=== PATIENT | female | born 1990 | race Two or more races ===

== ENCOUNTER → 2022-06-28 | Outpatient (CLI) | payer OTHER ==
[2022-06-28 12:14] LABS: Basophils # (auto) 0 10 ^3/uL (0-0.2); Basophils % (auto) 0.3 % (0.0-2.0); Eosinophils # (auto) 0.2 10 ^3/uL (0-0.8); Eosinophils % (auto) 1.4 % (0.0-7.0); Hematocrit 40.9 % (36.0-46.0); Hemoglobin 12.9 g/dL (12.2-16.2); Lymphocytes # (auto) 3.5 10 ^3/uL (0.4-5.4); Lymphocytes % (auto) 29.6 % (10.0-50.0); Mean Corpuscular Hemoglobin 28.4 pg (28.0-32.0); Mean Corpuscular Hgb Conc. 31.6 g/dL (32.0-36.0); Mean Corpuscular Volume 89.9 fL (80.0-100.0); Monocytes # (auto) 0.8 10 ^3/uL (0-1.3); Monocytes % (auto) 6.6 % (0.0-12.0); Neutrophils # (auto) 7.4 10 ^3/uL (1.6-8.6); Neutrophils % (auto) 62.1 % (37.0-80.0); Red Blood Cells 4.55 10^6/uL (4.0-5.20); Red Cell Distribution Width 12.7 % (11.8-14.3); White Blood Cell 11.9 10^3/uL (4.4-10.8)
[2022-06-28 12:23] LABS: Alcohol, Urine < 3.0 mg/dL (0-10); Amphetamine Screen, Urine NEGATIVE (NEGATIVE); Barbiturate Scree,Urine NEGATIVE (NEGATIVE); Benzodiazephine Screen, Urine NEGATIVE (NEGATIVE); Cannabinoid Screen, Urine POSITIVE (NEGATIVE); Cocaine Screen, Urine NEGATIVE (NEGATIVE); Opiate Scree,Urine NEGATIVE (NEGATIVE); Phencyclidine Screen, Urine NEGATIVE (NEGATIVE)
[2022-06-29 06:06] LABS: RPR Non Reactive (Non Reactive)
== END | disposition home or self-care (01) ==
LOC: LAB 10:55
PROVIDERS: ATTEND Obstetrics & Gynecology
DX: Z34.80 Encounter for supervision of other normal pregnancy, unspecified trimester (principal); Z31.430 Encounter of female for testing for genetic disease carrier status for procreative management; Z36.0 Encounter for antenatal screening for chromosomal anomalies; N39.0 Urinary tract infection, site not specified
CPT/HCPCS: 36415; 80307; 83036; 84112; 84144; 84702; 85025; 86592; 86703; 86762; 86765; 86850; 86900; 86901; 87086; 87340

== ENCOUNTER 2022-10-28 15:55 | Observation (INO) | payer OTHER ==
[~2022-10-28] VITALS: Ht 165.1 cm; Wt 80.3 kg
== END 2022-10-28 21:20 | disposition home or self-care (01) ==
LOC: LDRP 15:55 → UNDOADMOB 15:55 → LDRP 16:08
PROVIDERS: ADMIT Obstetrics & Gynecology; ATTEND Obstetrics & Gynecology
DX: O46.93 Antepartum hemorrhage, unspecified, third trimester (principal); O26.893 Other specified pregnancy related conditions, third trimester; N89.8 Other specified noninflammatory disorders of vagina; O24.419 Gestational diabetes mellitus in pregnancy, unspecified control; Z3A.29 29 weeks gestation of pregnancy; Z79.899 Other long term (current) drug therapy
CPT/HCPCS: 59025; 81002; 82962; 94760; G0378; 76815

== ENCOUNTER 2022-11-16 08:25 | Observation (INO) | payer OTHER ==
[2022-11-16] MEDS ORDERED: PREN1TAB71 OR (09:58)
== END 2022-11-16 10:27 | disposition home or self-care (01) ==
LOC: UNDOADMOB 09:10 → LDRP 09:10 → UNDODISOB 10:27
PROVIDERS: ADMIT Obstetrics & Gynecology; ATTEND Obstetrics & Gynecology
DX: O24.419 Gestational diabetes mellitus in pregnancy, unspecified control (principal); O26.893 Other specified pregnancy related conditions, third trimester; R10.9 Unspecified abdominal pain; Z3A.32 32 weeks gestation of pregnancy
CPT/HCPCS: 59025; 76818; 81002; 82948; 82962; G0378

== ENCOUNTER 2022-11-23 08:43 | Observation (INO) | payer OTHER ==
[~2022-11-23 08:43] MED LIST: PREN1TAB71 OR
== END 2022-11-23 11:46 | disposition home or self-care (01) ==
LOC: UNDOADMOB 10:07 → LDRP 10:07
PROVIDERS: ADMIT Obstetrics & Gynecology; ATTEND Obstetrics & Gynecology
DX: O24.419 Gestational diabetes mellitus in pregnancy, unspecified control (principal); Z3A.33 33 weeks gestation of pregnancy
CPT/HCPCS: 59025; 76818; 81002; 82948; 82962; 94760; G0378

== ENCOUNTER 2022-11-30 10:47 | Observation (INO) | payer OTHER | END 2022-11-30 11:28 | disposition home or self-care (01) | LOC: LDRP 10:47 | PROVIDERS: ADMIT Obstetrics & Gynecology; ATTEND Obstetrics & Gynecology | DX: O24.419 Gestational diabetes mellitus in pregnancy, unspecified control (principal); Z3A.34 34 weeks gestation of pregnancy | CPT/HCPCS: 59025; 76818; 81002; 82948; 82962; 94760; G0378 ==

== ENCOUNTER 2022-12-08 10:02 | Observation (INO) | payer OTHER ==
[2022-12-08] MEDS ORDERED: ACYC1CAP23 PO (12:01)
== END 2022-12-08 12:15 | disposition home or self-care (01) ==
LOC: LDRP 10:02 → UNDOADMOB 10:02 → LDRP 10:37
PROVIDERS: ADMIT Obstetrics & Gynecology; ATTEND Obstetrics & Gynecology
DX: O24.419 Gestational diabetes mellitus in pregnancy, unspecified control (principal); Z3A.35 35 weeks gestation of pregnancy
CPT/HCPCS: 59025; 76818; 81002; 82948; 82962; 94760; G0378

== ENCOUNTER 2022-12-11 08:31 | Inpatient (IN) | payer OTHER ==
[~2022-12-11] VITALS: Ht 165.1 cm; Wt 82.1 kg
[~2022-12-11 08:31] MED LIST changes: +ACYC1CAP23 PO
[2022-12-11] MEDS ORDERED: PHISODERM TOP SOLN 240ML BTL TOP PRN (09:15)
[2022-12-11] MEDS ORDERED: LIDOCAINE 2%HCL (LOCAL ANESTH.) INJ 20ML MDV IJ PRN (10:00)
[2022-12-11] MEDS ORDERED: TERBUTALINE SULFATE 1 MG/ML 1ML VIAL SC PRN (10:00)
[2022-12-11] MEDS ORDERED: LACT. RINGERS/OXYTOCIN 20UNITS 500 ML IV ONE ×2 (10:00→10:30)
[2022-12-11] MEDS ORDERED: BUTORPHANOL TARTRATE 2 MG/1 ML VIAL IV PRN ×2 (10:00)
[2022-12-11 10:43] LABS: Basophils # (auto) 0 10 ^3/uL (0-0.2); Basophils % (auto) 0.5 % (0.0-2.0); Eosinophils # (auto) 0.1 10 ^3/uL (0-0.8); Eosinophils % (auto) 0.9 % (0.0-7.0); Hematocrit 37.2 % (36.0-46.0); Hemoglobin 12.2 g/dL (12.2-16.2); Lymphocytes # (auto) 1.9 10 ^3/uL (0.4-5.4); Lymphocytes % (auto) 26.5 % (10.0-50.0); Mean Corpuscular Hgb Conc. 32.8 g/dL (32.0-36.0); Mean Corpuscular Volume 88.7 fL (80.0-100.0); Monocytes # (auto) 0.4 10 ^3/uL (0-1.3); Monocytes % (auto) 6.2 % (0.0-12.0); Neutrophils # (auto) 4.8 10 ^3/uL (1.6-8.6); Neutrophils % (auto) 65.9 % (37.0-80.0); Nucleated Red Blood Cells % 0.1 %; White Blood Cell 7.3 10^3/uL (4.4-10.8)
[2022-12-11 11:01] LABS: Albumin 2.4 g/dL (3.4-5.0); Calcium 8.5 mg/dL (8.5-10.1); INR 0.89 (0.9-1.15); Partial Thromboplastin Time 26.4 sec (24.6-33.4); Potassium 4.1 mmol/L (3.5-5.1)
[2022-12-11 11:05] LABS: BUN/Creatinine Ratio 7.8; Bilirubin, Total 0.4 mg/dL (0.2-1.0); Total Protein 6.2 g/dL (6.4-8.2)
[2022-12-11] MEDS ORDERED: PENICILLIN G POT 5MIL/D5 50ML 50 ML IV ONE (11:30)
[2022-12-11] MEDS: LACTATED RINGER'S 1,000 ML IV SCH ×2 (12:09→12:44)
[2022-12-11] MEDS ORDERED: miSOPROStol 50 MCG per PRE-CUT 1/2 TAB PO PRN (13:00)
[2022-12-11] MEDS ORDERED: LACT. RINGERS/OXYTOCIN 20UNITS 1,000 ML IV SCH (13:00)
[2022-12-11 13:03] LABS: Alcohol, Urine < 3.0 mg/dL (0-10); Amphetamine Screen, Urine NEGATIVE (NEGATIVE); Barbiturate Scree,Urine NEGATIVE (NEGATIVE); Benzodiazephine Screen, Urine NEGATIVE (NEGATIVE); Cannabinoid Screen, Urine NEGATIVE (NEGATIVE); Cocaine Screen, Urine NEGATIVE (NEGATIVE); Opiate Scree,Urine NEGATIVE (NEGATIVE); Phencyclidine Screen, Urine NEGATIVE (NEGATIVE)
[2022-12-11 13:26] LABS: Urine Bacteria NONE SEEN /hpf (None Seen); Urine Blood Negative /uL (Negative); Urine Specific Gravity 1.007 (1.001-1.035); Urine WBC 3 /hpf (0 - 5)
[2022-12-11] MEDS ORDERED: LACTATED RINGER S IUPC ONE (17:00)
[2022-12-11] MEDS: LACTATED RINGER'S 1,000 ML IUPC SCH (17:10)
[2022-12-11] MEDS: PENICILLIN G POTASSIUM 2,500,000 UNITS in D5W 5% 50 ML IV SCH ×2 (17:10→21:59)
[2022-12-11] MEDS ORDERED: ROPIVACAINE HCL 200 ML EPI SCH (20:15)
[2022-12-11] MEDS ORDERED: NALOXONE HCL 0.4 MG/ML VIAL IV ONE (20:15)
[2022-12-11] MEDS ORDERED: LACTATED RINGER'S 500 ML IV ONE (20:15)
[2022-12-11] MEDS ORDERED: fentaNYL CITRATE 100 MCG/2 ML VL IV ONE (20:15)
[2022-12-11] MEDS ORDERED: ePHEDrine SULFATE 50 MG/ML AMP IV ONE (20:15)
[2022-12-11] MEDS: WITCH HAZEL-GLYCERIN PAD TOP PRN (21:00)
[2022-12-11] MEDS: DERMOPLAST 60ML BOTTLE TOP PRN (21:01)
[2022-12-11] MEDS ORDERED: STERILE WATER 10 ML ONE (21:31)
[2022-12-12] MEDS: LACTATED RINGER'S 1,000 ML IUPC SCH (01:45)
[2022-12-12] MEDS: PENICILLIN G POTASSIUM 2,500,000 UNITS in D5W 5% 50 ML IV SCH (02:01)
[2022-12-12] MEDS ORDERED: PENICILLIN G POTASSIUM 2,500,000 UNITS in D5W 5% 50 ML IV SCH (06:00)
[2022-12-12 06:30] VITALS: BP 107/65
[2022-12-12] MEDS ORDERED: ONDANSETRON ODT 4 MG TAB PO PRN (07:45)
[2022-12-12 11:30] VITALS: BP 107/65
[2022-12-12 14:30] VITALS: BP 110/72
[2022-12-12] MEDS: IBUPROFEN 800 MG TAB PO SCH (17:30)
[2022-12-12 18:50] VITALS: BP 119/75
[2022-12-12] MEDS ORDERED: DOCUSATE SOD 100 MG CAP PO SCH (22:00)
[2022-12-12] MEDS: ACETAMINOPHEN 325 MG TAB PO PRN (22:04)
[2022-12-12 22:40] VITALS: BP 114/69
[2022-12-13] MEDS: IBUPROFEN 800 MG TAB PO SCH ×2 (00:11→05:55)
[2022-12-13 04:00] VITALS: BP 109/72
[2022-12-13] MEDS: ACETAMINOPHEN 325 MG TAB PO PRN (04:06)
[2022-12-13 07:16] VITALS: BP 107/75
[2022-12-13] MEDS: DERMOPLAST 60ML BOTTLE TOP PRN (07:48)
[2022-12-13] MEDS: WITCH HAZEL-GLYCERIN PAD TOP PRN (07:48)
[2022-12-13 08:06] LABS: RPR Non Reactive (Non Reactive)
[2022-12-13 11:20] VITALS: BP 111/71
== END 2022-12-13 13:25 | disposition home or self-care (01) | DRG 807 ==
LOC: LDRP 08:31 → OBSVTOIN 09:25 → LDRP 10:08
PROVIDERS: ADMIT Obstetrics & Gynecology; ATTEND Obstetrics & Gynecology
PROC: 10H07YZ Insertion of Other Device into Products of Conception, Via Natural or Artificial Opening (ICD-10-PCS; 2022-12-11)
PROC: 3E0DXGC Introduction of Other Therapeutic Substance into Mouth and Pharynx, External Approach (ICD-10-PCS; 2022-12-11)
PROC: 10E0XZZ Delivery of Products of Conception, External Approach (ICD-10-PCS; principal; 2022-12-13)
PROC: 3E0R3BZ Introduction of Anesthetic Agent into Spinal Canal, Percutaneous Approach (ICD-10-PCS; 2022-12-13)
PROC: 00HU33Z Insertion of Infusion Device into Spinal Canal, Percutaneous Approach (ICD-10-PCS; 2022-12-13)
DX: O42.913 Preterm premature rupture of membranes, unspecified as to length of time between rupture and onset of labor, third trimester (principal); Z37.0 Single live birth; Z20.822 Contact with and (suspected) exposure to COVID-19; Z3A.36 36 weeks gestation of pregnancy; Z88.1 Allergy status to other antibiotic agents
CPT/HCPCS: 36415; 59025; 59409; 62282; 76805; 76815; 76818; 80053; 80307; 81001; 81002; 82948; 82962; 84112; 85025; 85610; 85730; 86592; 86850; 86900; 86901; 87426; 94760; 94762; 96360; 96361; 96374; G0378; J2540; J2590; J7060

== ENCOUNTER 2025-08-07 07:44 | Outpatient (CLI) | payer OTHER, MEDICAID ==
[~2025-08-07 07:44] MED LIST changes: -ACYC1CAP23 PO; +ACYC200C22 PO
[2025-08-07 08:04] LABS: Hematocrit 40.8 % (36.0-46.0); Hemoglobin 13.6 g/dL (12.2-16.2); Nucleated Red Blood Cells % 0.0 %
[2025-08-07 08:05] LABS: Mean Corpuscular Hemoglobin 29.4 pg (28.0-32.0); Mean Corpuscular Volume 87.9 fL (80.0-100.0)
[2025-08-07 08:47] LABS: Anion Gap 11 (5-15); Calcium 9.1 mg/dL (8.7-10.4); Carbon Dioxide 22 mmol/L (20-31)
[2025-08-07 08:51] LABS: Alkaline Phosphatase 72 U/L (46-116)
[2025-08-07 08:52] LABS: BUN/Creatinine Ratio 14.3 (10.0-20.0); Blood Urea Nitrogen 11 mg/dL (9-23); Triglycerides 83 mg/dL (< 150)
[2025-08-07 08:53] LABS: Albumin 4.4 g/dL (3.2-4.8); Total Protein 7.6 g/dL (5.7-8.2)
[2025-08-07 08:54] LABS: Alanine Aminotransferase 29 U/L (7-40); Bilirubin, Total 0.4 mg/dL (0.2-1.0); Chloride 105 mmol/L (98-107); Cholesterol 173 mg/dL (< 200); Glucose 110 mg/dL (74-106); HDL Cholesterol 45 mg/dL (40-59); Potassium 3.8 mmol/L (3.5-5.1); Sodium 138 mmol/L (136-145)
[2025-08-07 10:49] LABS: Iron 83.0 ug/dL (50-170)
[2025-08-07 10:52] LABS: Total Iron Binding Capacity 343.0 ug/dL (250-425)
[2025-08-07 11:11] LABS: Ferritin 53.0 ng/mL (10-291)
[2025-08-08 13:44] LABS: Hepatitis A Total Antibody Positive (Negative); Hepatitis B Surface Antigen Negative (Negative); Hepatitis C Antibody Negative (Negative)
== END 2025-08-07 17:00 | disposition home or self-care (01) ==
LOC: LAB 07:44
PROVIDERS: ATTEND Licensed Practical Nurse
DX: E55.9 Vitamin D deficiency, unspecified (principal); Z13.29 Encounter for screening for other suspected endocrine disorder; Z13.1 Encounter for screening for diabetes mellitus; Z00.01 Encounter for general adult medical examination with abnormal findings
CPT/HCPCS: 36415; 80053; 80061; 82043; 82306; 82607; 82728; 82746; 83036; 83540; 83550; 84443; 85025; 86704; 86706; 86708; 86803; 87340

== ENCOUNTER → 2025-08-28 | Outpatient (CLI) | payer OTHER, MEDICAID ==
[2025-08-28 14:50] LABS: Hematocrit 40.3 % (36.0-46.0); Hemoglobin 13.2 g/dL (12.2-16.2); Mean Corpuscular Hemoglobin 29.0 pg (28.0-32.0); Mean Corpuscular Volume 88.4 fL (80.0-100.0); Nucleated Red Blood Cells % 0.0 %
== END | disposition home or self-care (01) ==
LOC: LAB 14:29
PROVIDERS: ATTEND Licensed Practical Nurse
DX: D72.829 Elevated white blood cell count, unspecified (principal); J20.0 Acute bronchitis due to Mycoplasma pneumoniae
CPT/HCPCS: 36415; 83615; 85025; 85652; 86141